=== PATIENT | female | born 1970 | race Caucasian/White ===

== ENCOUNTER 2017-01-16 06:04 | Day surgery (SDC) | payer OTHER ==
[~2017-01-16 06:04] MED LIST: BIRTH CONTROL PILL; MAX25 PO
== END 2017-01-16 23:59 | disposition home or self-care (01) ==
LOC: MSC 06:04
PROVIDERS: Surgery Plastic and Reconstructive Surgery
PROC: 0J0L0ZZ Alteration of Right Upper Leg Subcutaneous Tissue and Fascia, Open Approach (ICD-10-PCS; 2017-01-16)
PROC: 0J0M0ZZ Alteration of Left Upper Leg Subcutaneous Tissue and Fascia, Open Approach (ICD-10-PCS; 2017-01-16)
PROC: 0J0 Subcutaneous Tissue and Fascia, Alteration (ICD-10-PCS; 2017-01-16)
PROC: 0J080ZZ Alteration of Abdomen Subcutaneous Tissue and Fascia, Open Approach (ICD-10-PCS; 2017-01-16)
PROC: 0J070ZZ Alteration of Back Subcutaneous Tissue and Fascia, Open Approach (ICD-10-PCS; 2017-01-16)
PROC: 0H0V0JZ Alteration of Bilateral Breast with Synthetic Substitute, Open Approach (ICD-10-PCS; principal; 2017-01-16 07:15)
PROC: 0J080ZZ Alteration of Abdomen Subcutaneous Tissue and Fascia, Open Approach (ICD-10-PCS; 2017-01-16 07:15)
PROC: 0J0 Subcutaneous Tissue and Fascia, Alteration (ICD-10-PCS; 2017-01-16 07:15)
DX: Z41.1 Encounter for cosmetic surgery (principal); L98.7 Excessive and redundant skin and subcutaneous tissue; E88.1 Lipodystrophy, not elsewhere classified; L91.8 Other hypertrophic disorders of the skin; Q79.59 Other congenital malformations of abdominal wall
CPT/HCPCS: 84703; A9270-GY; C1789; J0690; J1580; J2250; J2270; J2370; J2405; J2710; J3010